=== PATIENT | female | born 1950 | race Two or more races ===

== ENCOUNTER 2023-11-21 20:20 | Inpatient (IN) | payer MEDICARE, OTHER, SELFPAY ==
[2023-11-21 14:13] VITALS: BP 180/100
[2023-11-21 14:29] LABS: % Basophils 0.3 % (0-2); % Eosinophils 0.5 % (0-6); % Immature Granulocytes 0.3 % (0-0.5); % Lymphocytes 19.5 % (20.5-51.1); % Monocytes 5.1 % (1.7-9.3); % Neutrophils 74.3 % (42.2-75.2); Absolute Lymphocytes 1.7 10^3/uL (1.2-3.4); Absolute Monocytes 0.5 10^3/uL (0.1-0.6); Absolute Neutrophils 6.5 10^3/uL (1.4-6.5); Hematocrit 41.9 % (37.0-47.0); Hemoglobin 15.2 g/dL (12.0-16.0); Mean Corp Hgb Conc. 36.3 g/dL (33.0-37.0); Mean Corpuscular Hgb 32.2 pg (27.0-31.0); Mean Corpuscular Volume 88.8 fL (81.0-99.0); Mean Platelet Volume 10.9 fL (7.4-10.4); Nucleated Red Blood Cells % 0 %; Platelet Count 162 10^3/uL (130-400); Red Blood Cell Count 4.72 10^6/uL (4.20-5.40); Red Cell Dist. Width 12.2 % (11.5-14.5); White Blood Cell Count 8.8 10^3/uL (4.8-10.8)
[2023-11-21 15:09] LABS: ALT (SGPT) 331 U/L (0-35); AST (SGOT) 575 U/L (14-36); Albumin 4.7 g/dl (3.5-5.0); Alkaline Phosphatase 155 U/L (38-126); Blood Urea Nitrogen 14 mg/dl (7-17); Calcium 9.7 mg/dl (8.4-10.2); Carbon Dioxide 23 mmol/L (22-30); Chloride 110 mmol/L (98-107); Glucose 133 mg/dl (70-99); Lipase 109 U/L (23-300); Sodium 141 mmol/L (135-145); Total Protein 7.3 g/dl (6.3-8.2); eGFR > 60.00
[2023-11-21] MEDS: ZOFRAN 4 MG IV ×2 (16:06→19:35)
--- NOTE | 2023-11-21 16:06 | ED.GENMED ---
History of Present Illness
General
Chief Complaint: Abdominal Pain
Source: patient and family
Exam Limitations: none
Time Seen by Provider: 11/21/23 15:16
Nursing documentation reviewed up to this point in time: agreed with
History of Present Illness
History of Present Illness:
73-year-old female with past with history of hypertension as well as recent cholecystectomy performed in [place] 6 weeks ago presenting to the emergency department today with concerns of worsening upper abdominal pain episodes of vomiting. Denies
any fevers denies any significant diarrhea. Denies any specific fevers.
Past History
Past History
ED Past Medical History: None
ED Past Surgical History: None
Review of Systems
Review of Systems
Allergies reviewed?: Yes
All Other Systems: ROS reviewed and negative except as documented in HPI and ROS
Phy Exam
Physical Exam
Physical Exam:
GENERAL: Alert , in no apparent distress
EYE: pupils equal and reactive
NECK: Supple, no significant adenopathy.
ENT: o/p clr, mmm.
CARDIAC: Regular rate and rhythm .
LUNGS: Clear breath sounds bilaterally, no acute respiratory distress, no wheezes/rales/rhonchi
ABDOMEN: Somewhat diffuse abdominal pain but mainly to the upper abdomen.
NEUROLOGICAL: Alert and oriented, no focal neuro deficits
SKIN: Warm and dry, skin intact.
MUSCULOSKELETAL: No edema, well perfused.
PSYCH: Normal and appropriate interaction.
Course
Orders/Labs/Results
Orders:
Orders
11/21/23 14:24
Complete Blood Count/With Diff Urgent
Comprehensive Metabolic Panel Urgent
Lipase Urgent
11/21/23 15:46
0.9% Sodium Chloride 1000 ml [Nss] 1,000 ml IV BOLUS
Ketorolac [Toradol] 15 mg IV NOW STA
Ondansetron Injectable [Zofran] 4 mg IV NOW STA
11/21/23 15:47
CT Abd/Pel (IV only)-DH only Urgent
Comment:
Reason For Exam: diffuse abd pain recent [place], 1 month ago in [place]
11/21/23 16:03
Urinalysis Reflex To Culture Urgent
11/21/23 16:09
Lactic Acid Urgent
11/21/23 19:07
HYDROmorphone [Dilaudid] 1 mg IV NOW STA
Ondansetron Injectable [Zofran] 4 mg IV NOW STA
Abnormal Lab Results
11/21/23
14:24
MCH 32.2 H pg
(27.0-31.0)
MPV 10.9 H fL
(7.4-10.4)
Lymphocytes % 19.5 L %
(20.5-51.1)
Chloride 110 H mmol/L
(98-107)
Glucose 133 H mg/dl
(70-99)
Total Bilirubin 2.0 H mg/dl
(0.2-1.3)
AST 575 H* U/L
(14-36)
ALT 331 H U/L
(0-35)
Alkaline Phosphatase 155 H U/L
(38-126)
11/21/23 14:24
11/21/23 14:24
Vital Signs
Initial and Last Documented VS:
Initial Vital Signs
Temp Pulse Resp BP Pulse Ox
98.6 F 103 18 180/100 97
11/21/23 14:13 11/21/23 14:13 11/21/23 14:13 11/21/23 14:13 11/21/23 14:13
Last Documented Vital Signs
Temp Pulse Resp BP Pulse Ox
98.6 F 103 18 125/71 97
11/21/23 14:13 11/21/23 14:13 11/21/23 14:13 11/21/23 18:00 11/21/23 14:13
MDM/Problems Addressed
MDM/Problems Addressed:
71-year-old female presenting to the emergency department today with concerns of abdominal pain developing the nausea and vomiting. This worsened throughout the day today. Had recent cholecystectomy in [place] 6 weeks ago. On arrival patient
mildly tachycardic afebrile blood pressure elevated to 110/100 labs performed showing elevated liver function test alk phos as well as bilirubin level. Initially mildly tachycardic improving after fluids and pain medication CT scan was obtained
that showed acute pancreatitis plan to admit for further monitoring treatment and assessment.
*Critical Care Note
Total Time (30-74mins, 75-104mins- exclusive of procedures): Not Applicable
ED Attending Note
-
Portions of this chart may have been created with voice recognition software.� Occasional wrong word or��sound alike� substitutions may have occurred due to the inherent limitations of voice recognition software.
Discharge Plan
Departure
Patient Disposition: Admit
Date of Disposition: 11/21/23
Time of Disposition: 19:31
Admit to: Med/Surg
Admit to doctor: Ezekiel
Presentation/result/management discussed w/ accepting MD/DO: Hospitalist
Patient with high blood pressure during this ER visit?: No
Condition: Fair
Covid-19: Not Applicable
Discharge Problem:
Acute pancreatitis, Transaminitis, Hyperbilirubinemia
Prescriptions:
No Action
atenolol 25 mg Tablet
12.5 mg PO DAILY
Theragen Tablet
1 tab PO DAILY
aspirin 81 mg Tablet,Delayed Release (Dr/Ec)
81 mg PO DAILY
calcium carbonate [Calcium 500] 500 mg calcium (1,250 mg) Tablet
500 mg PO DAILY
pantoprazole [Protonix] 40 mg Tablet,Delayed Release (Dr/Ec)
40 mg PO DAILY
vitamin B complex [B Complete] Tablet
1 tab PO DAILY
hydrochlorothiazide 25 mg Tablet
25 mg PO Q48H
rosuvastatin [Crestor] 10 mg Tablet
10 mg PO DAILY
cholecalciferol (vitamin D3) [Vitamin D3] 25 mcg (1,000 unit) Tablet
25 mcg PO DAILY
coQ10 (ubiquinol) 200 mg Capsule
200 mg PO DAILY
omega 2-gtc-qmm-fish oil [Fish Oil] 1,000 mg (120 mg-180 mg) Capsule
1 cap PO DAILY
magnesium oxide 400 mg magnesium Tablet
400 mg PO DAILY
Referrals:
Yvonne Salgado DO [Family Provider] -
Interventions
Interventions:
*Risk Screen - Suicide Last Done: 11/21/23 14:13
*General Assessment Last Done: 11/21/23 14:13
*Neglect/Abuse Screening Last Done: 11/21/23 14:13
[facility] Assessment Last Done: 11/21/23 16:15
Discharge Date and Time
Print Language: GEORGIAN
[2023-11-21] MEDS: TORADOL 15 MG IV (16:07)
[2023-11-21] MEDS: NSS 1000 IV (16:08)
[2023-11-21 16:09] VITALS: BP 151/77
[2023-11-21 16:30] LABS: Lactic Acid 1.9 mmol/L (0.7-2.0)
[2023-11-21 17:26] VITALS: BP 127/63
[2023-11-21 18:00] VITALS: BP 125/71
[2023-11-21] MEDS: DILAUDID 1 MG IV (19:35)
--- NOTE | 2023-11-21 19:57 | HPS.HSE ---
Family Physician
-
Family Physician: Yvonne Salgado
Chief Complaint
-
Abdominal pain, nausea and vomiting.
History of Present Illness
This is 71-year-old female who has a past medical history of hypertension, hyperlipidemia, gastritis, diaphragmatic hernia, fatty liver status post cholecystitis recently who presents to the Emergency Department with sudden onset of abdominal pain
that started at around 7 AM today.
Patient reports being in usual state of health until last night and she went to sleep in the usual state of health. She was out walking with mid epigastric abdominal pain that was around a 10 out of 10 at around 7 AM today. She reports some
radiation to the right upper quadrant. Patient reported significant nausea and no vomiting. She is unable to tolerate p.o. She does not have any diarrhea, melena or hematochezia. Denies any bloody emesis. She denies any abdominal bloating.
Denies any fevers or chills. Denies any urinary symptoms.
Patient was in [place] in early October and at that time apparently had acute cholecystitis and is now status post cholecystectomy. She reported that after the procedure she was having symptoms and underwent upper endoscopy which showed hernia. In the
past she has had gastritis. She also reported that about a year ago she had biliary colic with large stone in the gallbladder and was told to have it removed. She reported that in July she had lab work and was told that she had fatty liver at
that time.
Patient reports no new medications. She has no history of diabetes and denies any symptoms consistent with new onset diabetes. Patient denies any alcohol use. She denies any recent trauma or intra-abdominal procedures.
On arrival in the emergency department blood pressure was 115/79 with a pulse of 103 and a temperature of 90.6. Saturation was 97% on room air. There was no leukocytosis hemoglobin was 15 and blood count was 62. Chemistries were mostly normal
with normal electrolytes and glucose, lipase was within normal limits at 109, AST was elevated at 575 ALT 331 and alk phos 123. Bilirubin was slightly elevated at 2.0. CT scan of the abdomen pelvis revealed moderate peripancreatic
edema/inflammatory change consistent with pancreatitis, status postcholecystectomy dilated extrahepatic biliary duct.
Medical History
Past Medical History
Past Medical History: Reports GERD, HTN and Hypercholesterolemia
Past Surgical History: Reports Cholecystectomy
Social History
Tobacco: Non-smoker
Alcohol: Occasional
Drug: None
Personal: Single
Living: With Family
Employment: Retired
Family History
Family History: Not pertinent
Allergies / Home Medications
Allergies reflects when Allergies were last updated in webme.
Home Medications with original date entered in webme
Allergy/Medication List:
Allergies
Allergy/AdvReac Type Severity Reaction Status Date / Time
No Known Allergies Allergy Verified 01/23/21 21:05
Home Medications
aspirin 81 mg tablet,delayed release 81 mg PO DAILY 11/21/23
atenolol 25 mg tablet 12.5 mg PO DAILY 11/21/23
calcium carbonate 500 mg PO DAILY 11/21/23
cholecalciferol (vitamin D3) 25 mcg (1,000 unit) tablet (Vitamin D3) 25 mcg PO DAILY 11/21/23
coQ10 (ubiquinol) 200 mg capsule 200 mg PO DAILY 11/21/23
hydrochlorothiazide 25 mg tablet 25 mg PO Q48H 11/21/23
magnesium oxide 400 mg PO DAILY 11/21/23
omega 7-iqa-ceh-fish oil 1,000 mg (120 mg-180 mg) capsule (Fish Oil) 1 cap PO DAILY 11/21/23
pantoprazole 40 mg tablet,delayed release (Protonix) 40 mg PO DAILY 11/21/23
rosuvastatin 10 mg tablet 10 mg PO DAILY 11/21/23
therapeutic multivitamin 1 tab PO DAILY 11/21/23
vitamin B complex 1 tab PO DAILY 11/21/23
Review of Systems
-
History Source: Patient
Constitutional: Reports No Symptoms
EENT: Reports No Symptoms
Respiratory: Reports No Symptoms
Cardiac: Reports No Symptoms
Abdomen/GI: Reports Abdominal Pain, Nausea and Vomiting
: Reports No Symptoms
Musculoskeletal: Reports No Symptoms
Skin: Reports No Symptoms
Neurological: Reports No Symptoms
Endocrine: Reports No Symptoms
Hematologic/Lymphatic: Reports No Symptoms
Psych: Reports No Symptoms
Physical Exam
Vital Signs
Vital Signs
Temp Pulse Resp BP Pulse Ox
98.6 F 103 18 125/71 97
11/21/23 14:13 11/21/23 14:13 11/21/23 14:13 11/21/23 18:00 11/21/23 14:13
Physical Exam
General: Well Developed and Appears in Distress
HEENT: NormoCephalic, Anicteric, Moist mucous membranes and Atraumatic
Respiratory: Clear
Cardiac: S1/S2 and Tachycardia
Breast: Deferred by me
GI: Soft, Non Distended and Tender
Rectal: Deferred by Provider
Genito-urinary: Deferred by me
Musculoskeletal: No Clubbing, No Cyanosis and No Edema
Skin: Warm
Neuro: AO x 3
Hematologic/Lymphatic: No Lymphadenopathy
Psych: Calm
Laboratory Results
-
11/21/23 14:24
11/21/23 14:24
Laboratory Results
Lactic Acid 1.9 mmol/L (0.7-2.0) 11/21/23 16:09
Total Bilirubin 2.0 mg/dl (0.2-1.3) H 11/21/23 14:24
AST 575 U/L (14-36) H* 11/21/23 14:24
ALT 331 U/L (0-35) H 11/21/23 14:24
Alkaline Phosphatase 155 U/L (38-126) H 11/21/23 14:24
Lipase 109 U/L (23-300) 11/21/23 14:24
Data Reviewed
-
CT Scan: Report Reviewed by me
Lab Data: Labs Reviewed by me
Old Records: Reviewed
Impression/Plan
-
IMPRESSION:
PLAN:
1. Acute Pancreatitis - Patient with acute onset epigastric pain, nausea and vomiting. Non-radiating. Lipase is normal but CT scan shows pancreatic inflammation c/w acute pancreatitis. She denies etoh, new medications or diabetes. H/O gall
stones but is now s/p cholecystectomy. Etiology of pancrease could still be a billiary with a passed stone but less likely. No trauma or procedures.
- admit to Gen med
- NPO for now,
- LR at 150 ml/hr
- antiemetics and pain control
- ppi iv daily
- check triglycerides panel, trend LFTs
- MRCP in am
- GI consultation.
2. Transmaminitis - Reportedly told had fatty liver and CT scan is c/w. Cannot rule out biliary obstruction entirely
- lipid panel as above
- MRCP
3. HTN - Stable
- continue atenolol
DVT PPX with lovenox sq
Full Code
[2023-11-21] MEDS: REGLAN 10 MG IV (20:01)
[2023-11-21] MEDS: PROTONIX IV 40 MG IV (20:45)
[2023-11-21 21:00] LABS: Triglycerides 94 mg/dl (10-149)
[2023-11-21 21:20] VITALS: BP 109/68; BMI 29.1
--- NOTE | 2023-11-21 21:20 | PTCARENOTE ---
Pt arrived from ED via stretcher and ambulated to bed w/ family member at bedside. Pt is AAOx3, VSS, and w/o complaints of pain. Pt is resting comfortably w/ call gabriel within reach.
[2023-11-21] MEDS: LR 1000 IV (21:37)
[2023-11-21 23:44] VITALS: BP 94/62
[2023-11-22] MEDS: ZOFRAN 4 MG IV (01:13)
[2023-11-22 01:37] LABS: Urine Albumin Negative (Neg - Trace); Urine Bilirubin 1+ (Negative); Urine Character Clear (Clear); Urine Color Amber; Urine Glucose Negative (Negative); Urine Ketone Negative (Negative); Urine Leukocyte 1+ (Negative); Urine Nitrite Negative (Negative); Urine Occult Blood 2+ (Negative); Urine Urobilinogen Negative (Neg - 1+)
[2023-11-22 02:00] LABS: Urine Red Blood Cell 21-25 /HPF (0-2)
[2023-11-22 02:01] LABS: Urine Mucus Few
[2023-11-22 02:02] LABS: Urine Bacteria Moderate (Negative); Urine Squamous Cell 16-20 /LPF (Few)
[2023-11-22 03:26] VITALS: BP 98/63
[2023-11-22] MEDS: LR 1000 IV ×3 (05:10→17:33)
[2023-11-22] MEDS: CRESTOR 10 MG PO (07:42)
[2023-11-22] MEDS: TENORMIN 12.5 MG PO (07:42)
[2023-11-22] MEDS: ASPIR LOW (ENTERIC COATED) 81 MG PO (07:43)
[2023-11-22] MEDS: PROTONIX IV 40 MG IV (07:43)
[2023-11-22 07:55] VITALS: BP 134/76
[2023-11-22 08:51] LABS: ALT (SGPT) 743 U/L (0-35); Albumin 3.4 g/dl (3.5-5.0); Alkaline Phosphatase 131 U/L (38-126); Blood Urea Nitrogen 15 mg/dl (7-17); Calcium 8.6 mg/dl (8.4-10.2); Carbon Dioxide 22 mmol/L (22-30); Chloride 114 mmol/L (98-107); Direct Bilirubin 1.5 mg/dl (0.0-0.4); Estimated Creatinine Clearance 51 ml/min; HDL Cholesterol 69 mg/dl; LDL Cholesterol, Calculated 43 mg/dl; Magnesium 1.7 mg/dl (1.6-2.3); Potassium 3.8 mmol/L (3.5-5.1); Sodium 142 mmol/L (135-145); Total Bilirubin 3.6 mg/dl (0.2-1.3); Total Cholesterol 125 mg/dl (50-199); Total Protein 5.6 g/dl (6.3-8.2); Triglyceride 65 mg/dl (10-149); Very Low Density Lipoprotein 13 mg/dl (0-30); eGFR > 60.00
[2023-11-22 08:58] LABS: AST (SGOT) 821 U/L (14-36); Glucose 101 mg/dl (70-99)
[2023-11-22 09:41] LABS: Hematocrit 33.9 % (37.0-47.0); Hemoglobin 11.9 g/dL (12.0-16.0); Mean Corp Hgb Conc. 35.1 g/dL (33.0-37.0); Mean Corpuscular Hgb 32.5 pg (27.0-31.0); Mean Corpuscular Volume 92.6 fL (81.0-99.0); Mean Platelet Volume 11.7 fL (7.4-10.4); Platelet Count 135 10^3/uL (130-400); Red Blood Cell Count 3.66 10^6/uL (4.20-5.40); Red Cell Dist. Width 12.9 % (11.5-14.5); White Blood Cell Count 9.1 10^3/uL (4.8-10.8)
[2023-11-22 10:18] LABS: Lipase > 4000 U/L (23-300)
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
[2023-11-22 15:00] VITALS: BP 117/69
--- NOTE | 2023-11-22 16:19 | CM ---
met with patient and her family at bedside.patient lives with her and grandchild in condo/apt with [address] to enter apt,then first floor living .she ambulates i and is I with her adl.patient's pcp is dr dumont and she uses [facility]
jaspal marino in [facility] .patient has never had a vn or adm to ip rehab.
past medical hx:htn,hld,gastritis,diaphragnmatic hernia,fatty liver sp lucila.
patient is adm with abd pain/pancreatitis.ivf lactated ringers,iv ppi,gi following,npo,for mrcp in am.plan home with no anticipated needs.
[2023-11-22] MEDS: LOVENOX 40 MG SC (17:31)
[2023-11-22 23:03] VITALS: BP 149/76
[2023-11-23] MEDS: LR 1000 IV ×5 (00:11→21:26)
[2023-11-23 07:45] VITALS: BP 118/72
[2023-11-23 08:01] LABS: % Basophils 0.4 % (0-2); % Eosinophils 3.1 % (0-6); % Immature Granulocytes 0.3 % (0-0.5); % Lymphocytes 23.2 % (20.5-51.1); Absolute Eosinophils 0.2 10^3/uL (0-0.7); Absolute Lymphocytes 1.7 10^3/uL (1.2-3.4); Absolute Monocytes 0.6 10^3/uL (0.1-0.6); Absolute Neutrophils 4.8 10^3/uL (1.4-6.5); Hematocrit 33.7 % (37.0-47.0); Hemoglobin 11.9 g/dL (12.0-16.0); Mean Corp Hgb Conc. 35.3 g/dL (33.0-37.0); Mean Corpuscular Hgb 32.1 pg (27.0-31.0); Mean Corpuscular Volume 90.8 fL (81.0-99.0); Mean Platelet Volume 12.1 fL (7.4-10.4); Nucleated Red Blood Cells % 0 %; Platelet Count 120 10^3/uL (130-400); Red Blood Cell Count 3.71 10^6/uL (4.20-5.40); Red Cell Dist. Width 12.8 % (11.5-14.5); White Blood Cell Count 7.4 10^3/uL (4.8-10.8)
[2023-11-23 08:44] LABS: ALT (SGPT) 582 U/L (0-35); AST (SGOT) 384 U/L (14-36); Albumin 3.8 g/dl (3.5-5.0); Alkaline Phosphatase 196 U/L (38-126); Blood Urea Nitrogen 10 mg/dl (7-17); Calcium 8.8 mg/dl (8.4-10.2); Carbon Dioxide 24 mmol/L (22-30); Chloride 108 mmol/L (98-107); Estimated Creatinine Clearance 57 ml/min; Glucose 84 mg/dl (70-99); Lipase 308 U/L (23-300); Magnesium 1.7 mg/dl (1.6-2.3); Potassium 3.2 mmol/L (3.5-5.1); Sodium 140 mmol/L (135-145); Total Bilirubin 3.5 mg/dl (0.2-1.3); Total Protein 6.1 g/dl (6.3-8.2); eGFR > 60.00
[2023-11-23] MEDS: TENORMIN 12.5 MG PO (09:10)
[2023-11-23] MEDS: PROTONIX IV 40 MG IV (09:10)
[2023-11-23] MEDS: ASPIR LOW (ENTERIC COATED) 81 MG PO (09:10)
[2023-11-23] MEDS: NSS (PRESERVATIVE FREE) 10 ML IV (10:16)
--- NOTE | 2023-11-23 10:33 | W.PN.GI.CBS2 ---
Addendum entered and electronically signed by Brandan Mckeon MD 11/23/23 14:40:
I saw and examined the patient.
The DIE SETTER or PA's note was reviewed and I agree with the note.
Comment: Feeling better. Tolerated full liquids for lunch
ABD soft NTND
REC:
MRCP negative for CBD stone
Possibly passed stone, LFTs coming down
Recheck am LFTs
Advance to low fat diet tomorrow and if tolerated, can d/c
Original Note:
Today's Communication / Plan
-
full liquid diet
CBC, LFT in am
Incentive spirometer
Continue IVF
Assessment / Plan
-
Summary: 73yo female presents with acute onset abdominal pain x 1 day. She had recent cholecystectomy for gallstones in [place] while on vacation in October. Post op complicated by incarcerated hiatal hernia requiring return to OR, chest tubes,
repair. AST 575-->821, ALT 331-->743, TB 2.0-->3.6, Lipase 109-->4000. CT- acute pancreatitis with moderate peripancreatic edema/inflammatory change. CBD 12mm. Cholecystectomy
Impression:
Gallstone pancreatitis
s/p recent cholecystectomy for gallstones in [place] October 2023
post-op repair of incarcerated hiatal hernia
Recommendations:
-Tolerated clears, advance to full liquid diet
Currently feeling better, perhaps passed stone
Trend LFTs, CBC
Continue LR- increase to 200cc/hr
Add incentive spirometer
Subjective
Subjective
Date of Service: November 23, 2023
Patient with decreased pain. Tolerated clear liquid diet. Hgb stable. LFTs trending down. Lipase trending down. MRI/MRCP with mild peripancreatic edema, mild intra/extrahepatic biliary ductal dilatation s/p CCY. No bilirubinuria, no BM since
Thursday. Not uncomfortable.
Objective
Data Reviewed
Laboratory Data:
Laboratory Results
11/23/23 06:30
11/23/23 06:30
Laboratory Results
Magnesium 1.7 mg/dl (1.6-2.3) 11/23/23 06:30
Total Bilirubin 3.5 mg/dl (0.2-1.3) H 11/23/23 06:30
AST 384 U/L (14-36) H 11/23/23 06:30
ALT 582 U/L (0-35) H* 11/23/23 06:30
Alkaline Phosphatase 196 U/L (38-126) H 11/23/23 06:30
Lipase 308 U/L (23-300) H 11/23/23 06:30
Vital Signs and I&O:
Vital Signs
Temp Pulse Resp BP Pulse Ox
98.7 F 72 16 118/72 95
11/23/23 07:45 11/23/23 07:45 11/23/23 07:45 11/23/23 07:45 11/23/23 07:45
I&O
11/22/23 11/23/23 11/24/23
06:59 06:59 06:59
Intake Total 1240 / 1240
Balance 1240 / 1240
Physical Exam
Physical Exam
HEENT: Anicteric
Cardiology: Normal Sinus Rhythm
Pulmonary: Clear
GI: Soft, Non Distended, Tender (mild), Normal Bowel Sounds and Other (healed incisions, mild area ecchymosis RLQ)
Extremities: No Edema
Neuro: Non Focal
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
[2023-11-23 15:30] VITALS: BP 135/73
[2023-11-23] MEDS: LOVENOX 40 MG SC (17:43)
[2023-11-23 23:38] VITALS: BP 159/81
[2023-11-24] MEDS: LR 1000 IV ×2 (03:03→09:10)
[2023-11-24 07:08] VITALS: BP 182/91
[2023-11-24 08:45] LABS: ALT (SGPT) 386 U/L (0-35); AST (SGOT) 164 U/L (14-36); Albumin 3.7 g/dl (3.5-5.0); Alkaline Phosphatase 212 U/L (38-126); Direct Bilirubin 0.2 mg/dl (0.0-0.4); Lipase 115 U/L (23-300); Total Bilirubin 1.5 mg/dl (0.2-1.3)
[2023-11-24 08:46] LABS: Hematocrit 34.7 % (37.0-47.0); Hemoglobin 12.4 g/dL (12.0-16.0); Mean Corp Hgb Conc. 35.7 g/dL (33.0-37.0); Mean Corpuscular Hgb 32.5 pg (27.0-31.0); Mean Corpuscular Volume 91.1 fL (81.0-99.0); Mean Platelet Volume 11.9 fL (7.4-10.4); Platelet Count 128 10^3/uL (130-400); Red Blood Cell Count 3.81 10^6/uL (4.20-5.40); Red Cell Dist. Width 12.5 % (11.5-14.5); White Blood Cell Count 5.3 10^3/uL (4.8-10.8)
[2023-11-24] MEDS: LR IV ×2 (09:10→15:48)
[2023-11-24] MEDS: ASPIR LOW (ENTERIC COATED) 81 MG PO (09:11)
[2023-11-24] MEDS: TENORMIN 12.5 MG PO (09:11)
[2023-11-24] MEDS: PROTONIX IV 40 MG IV (09:12)
[2023-11-24] MEDS: NSS (PRESERVATIVE FREE) 10 ML IV (09:12)
--- NOTE | 2023-11-24 14:02 | W.PN.GI.CBS2 ---
Addendum entered and electronically signed by Subhash Mccullough MD 11/24/23 18:28:
I saw and examined the patient.
The CROWN CERAMIST's note was reviewed and I agree with the note.
Comment:
Acute pancreatitis -feeling better. Denies any abdominal pain/nausea/vomiting. Tolerating diet. MRI abdomen no retained CBD stone noted. Liver test trending down
plan
Will recommend repeat LFT with PCP in 1 to 2 weeks. If persistently elevated will recommend outpatient EUS
Follow-up with GI as outpatient. Will sign off
Original Note:
Today's Communication / Plan
-
Continue low-fat diet
Follow-up with LFTs in 1 to 2 weeks with PCP
Patient given our card for GI follow-up
Assessment / Plan
-
Summary: 73yo female presents with acute onset abdominal pain x 1 day. She had recent cholecystectomy for gallstones in [place] while on vacation in October. Post op complicated by incarcerated hiatal hernia requiring return to OR, chest tubes,
repair. AST 575-->821, ALT 331-->743, TB 2.0-->3.6, Lipase 109-->4000. CT- acute pancreatitis with moderate peripancreatic edema/inflammatory change. CBD 12mm. Cholecystectomy
Impression:
Gallstone pancreatitis
s/p recent cholecystectomy for gallstones in [place] October 2023
post-op repair of incarcerated hiatal hernia
Recommendations:
-Tolerating low-fat diet.
-Currently feeling better, perhaps passed stone
-Recommend repeat LFTs with PCP in 1 to 2 weeks
Subjective
Subjective
Date of Service: November 24, 2023
Patient without any pain. Tolerating a low-fat diet. LFTs trending down.
Objective
Data Reviewed
Laboratory Data:
Laboratory Results
11/24/23 07:15
11/23/23 06:30
Laboratory Results
Magnesium 1.7 mg/dl (1.6-2.3) 11/23/23 06:30
Total Bilirubin 1.5 mg/dl (0.2-1.3) H D 11/24/23 07:15
AST 164 U/L (14-36) H 11/24/23 07:15
ALT 386 U/L (0-35) H 11/24/23 07:15
Alkaline Phosphatase 212 U/L (38-126) H 11/24/23 07:15
Lipase 115 U/L (23-300) 11/24/23 07:15
Vital Signs and I&O:
Vital Signs
Temp Pulse Resp BP Pulse Ox
98.1 F 53 20 182/91 95
11/24/23 07:08 11/24/23 07:08 11/24/23 07:08 11/24/23 07:08 11/24/23 08:20
I&O
11/23/23 11/24/23 11/25/23
06:59 06:59 06:59
Intake Total 1240 / 1240 3660 / 3660
Balance 1240 / 1240 3660 / 3660
Physical Exam
Physical Exam
HEENT: Anicteric
Cardiology: Normal Sinus Rhythm
Pulmonary: Clear
GI: Soft, Non Distended, Non Tender and Normal Bowel Sounds
Extremities: No Edema
Neuro: Non Focal
--- NOTE | 2023-11-24 14:45 | CM ---
ISAMAR met with Helena today to discuss discharge. She is looking forward to returning home today. Family is supportive and Helena denies needing anything at home for discharge.
Plan: Discharge to home with family. No needs.
PCP: Yvonne Salgado
Pharmacy: [facility] in [place]
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
[2023-11-24 15:59] VITALS: BP 122/74
--- NOTE | 2023-11-24 16:00 | W.DS.TRANS ---
DC Summary - Manufacturing Industrial Engineer
-
Discharge Instructions:
Discharge Diagnosis/Procedures Acute Gallstone Pancreatitis
Diet Low Fat
Activity No restrictions
Driving Restrictions No driving for 24 hours
Bathing Restrictions None
Blood Work CBC, CMP in 1-2 weeks
Instructions:
Stand-Alone Forms:
Changes to Home Medications: Yes
Discharge Medications:
DC Medications w/original date entered in [facility]
aspirin 81 mg tablet,delayed release 81 mg PO DAILY 11/21/23
atenolol 25 mg tablet 12.5 mg PO DAILY 11/21/23
calcium carbonate 500 mg PO DAILY 11/21/23
cholecalciferol (vitamin D3) 25 mcg (1,000 unit) tablet (Vitamin D3) 25 mcg PO DAILY 11/21/23
coQ10 (ubiquinol) 200 mg capsule 200 mg PO DAILY 11/21/23
magnesium oxide 400 mg PO DAILY 11/21/23
omega 8-pfh-gtq-fish oil 1,000 mg (120 mg-180 mg) capsule (Fish Oil) 1 cap PO DAILY 11/21/23
pantoprazole 40 mg tablet,delayed release (Protonix) 40 mg PO DAILY 11/21/23
therapeutic multivitamin 1 tab PO DAILY 11/21/23
vitamin B complex 1 tab PO DAILY 11/21/23
Home Medication Changes
stop HCTZ and Crestor until lab checked
Pending Results: No
[2023-11-24] MEDS: KCL 20 MEQ PO (16:14)
--- NOTE | 2023-11-25 12:52 | PN.CDI ---
CDI
- -
CDI:
Physician Documentation Request
Admit Date: 11/21/23 20:20
Dear Doctor Anna,
Patient admitted for acute pancreatitis.
11/22 Potassium level: 3.2
11/23 Potassium chloride 20 meq PO administered
Based on the above, could you clarify in the progress notes, the appropriate diagnosis, if significant, that supports the above abnormalities and additional evaluation, monitoring and/or treatment rendered:
Hypokalemia
Abnormal lab insignificant
Other
Use of terms such as suspected, likely, concern for, or probable (associated with a specific diagnosis that is being evaluated, monitored, or treated as if it exists) are acceptable and can be coded in the inpatient setting, when documented at the
time of discharge.
Thank you,
Lynn Gaitan RN, BSN
CDI Specialist
Available via [place] text
Please use your independent medical judgment in providing your response.
--- NOTE | 2023-11-26 12:18 | PN.CDI ---
CDI
- -
CDI:
Physician Documentation Request
Admit Date: 11/21/23 20:20
Dear Doctor Anna
Please review the following and provide your response in the progress notes.
Clinical Indicators:
Patient admitted with Acute Pancreatitis
11/21 PN -lipase from 108 to>4000-obstructed stone? cannot rule out biliary obstruction entirely
11/23 PN -biliary ductal dilation not unexpected for postcholecystectomy status ?passed obstructed stone cannot ruled out biliary obstruction entirely
DS: .. resolving but uncomplicated acute interstitial edema to his pancreatitis with no evidence of gallstone, though having mild bile duct dilatation. The assumption is that this was a gallstone pancreatitis with a passed stone with rapid
resolution of all symptoms.
Please clarify the following:
____ Obstruction of bile duct was present on admission and is now resolved.
____ Obstruction of bile duct was present on admission and is still being monitored, evaluated or treated
____ Obstruction of bile duct was ruled out
____ Obstruction of bile duct is still a likely, suspected, probable diagnosis
____ Other
____ - Unable to determine
Use of terms such as suspected, likely, concern for, or probable (associated with a specific diagnosis that is being evaluated, monitored, or treated as if it exists) are acceptable and can be coded in the inpatient setting, when documented at the
time of discharge.
Thank you,
Alondra Ireland
Development Technician Inpatient
Please use your independent medical judgment in providing your response.
== END 2023-11-24 16:40 | disposition home or self-care (01) | DRG 438 ==
LOC: 4 EAST ACU 20:20
PROVIDERS: Emergency Medicine; Hospitalist; Nurse Practitioner; Physician Assistant; ADMITTING PHYSICIAN Internal Medicine; ATTENDING PHYSICIAN Internal Medicine; CONSULT PHYSICIAN Specialist; EMERGENCY PHYSICIAN Emergency Medicine; FAMILY PHYSICIAN Internal Medicine
DX: K85.10 Biliary acute pancreatitis without necrosis or infection (principal); K83.1 Obstruction of bile duct; I10 Essential (primary) hypertension; E78.00 Pure hypercholesterolemia, unspecified; K21.9 Gastro-esophageal reflux disease without esophagitis; K76.0 Fatty (change of) liver, not elsewhere classified; E87.6 Hypokalemia; Z90.49 Acquired absence of other specified parts of digestive tract; Z87.891 Personal history of nicotine dependence; Z87.19 Personal history of other diseases of the digestive system; Z79.82 Long term (current) use of aspirin
CPT/HCPCS: 74177; 74183; 80053; 80061; 80076; 81003; 81015; 82248; 83605; 83690; 83735; 84478; 85025; 85027; 87086; 96361; 96374; 96375; 96376; 99285; A9575; Q9967

== ENCOUNTER → 2024-05-13 10:10 | Outpatient (REF) | payer MEDICARE, OTHER, SELFPAY | LOC: RAD 10:10 | PROVIDERS: ATTENDING PHYSICIAN Specialist; FAMILY PHYSICIAN Internal Medicine | DX: R10.13 Epigastric pain (principal) | CPT/HCPCS: 74246 ==

== ENCOUNTER 2024-05-17 13:35 | Emergency (ER) | payer MEDICARE, OTHER, SELFPAY ==
[2024-05-17 13:37] VITALS: BP 141/109
[2024-05-17 14:17] LABS: % Basophils 0.4 % (0-2); % Eosinophils 1.9 % (0-6); % Immature Granulocytes 0.3 % (0-0.5); % Lymphocytes 22.3 % (20.5-51.1); % Monocytes 10.4 % (1.7-9.3); % Neutrophils 64.7 % (42.2-75.2); Absolute Eosinophils 0.1 10^3/uL (0-0.7); Absolute Lymphocytes 1.6 10^3/uL (1.2-3.4); Absolute Monocytes 0.7 10^3/uL (0.1-0.6); Absolute Neutrophils 4.5 10^3/uL (1.4-6.5); Hematocrit 42.9 % (37.0-47.0); Mean Corpuscular Hgb 32.3 pg (27.0-31.0); Mean Corpuscular Volume 92.3 fL (81.0-99.0); Nucleated Red Blood Cells % 0 %; Platelet Count 177 10^3/uL (130-400); Red Blood Cell Count 4.65 10^6/uL (4.20-5.40); Red Cell Dist. Width 12.7 % (11.5-14.5)
[2024-05-17 14:27] LABS: ALT (SGPT) 31 U/L (0-35); AST (SGOT) 35 U/L (14-36); Albumin 4.7 g/dl (3.5-5.0); Alkaline Phosphatase 67 U/L (38-126); Blood Urea Nitrogen 24 mg/dl (7-17); Calcium 9.7 mg/dl (8.4-10.2); Carbon Dioxide 24 mmol/L (22-30); Chloride 105 mmol/L (98-107); Glucose 115 mg/dl (70-99); Potassium 4.1 mmol/L (3.5-5.1); Sodium 138 mmol/L (135-145); Total Bilirubin 1.1 mg/dl (0.2-1.3); Total Protein 7.2 g/dl (6.3-8.2); eGFR > 60.00
[2024-05-17 14:36] LABS: Troponin I < 0.012 ng/ml
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
[2024-05-17 16:35] VITALS: BP 119/72
[2024-05-17 18:00] VITALS: BP 124/68
[2024-05-17] MEDS: TORADOL 30 MG IM (18:17)
== END 2024-05-17 18:51 | disposition home or self-care (01) ==
LOC: EMR 13:35
PROVIDERS: Emergency Medicine; EMERGENCY PHYSICIAN Emergency Medicine; FAMILY PHYSICIAN Internal Medicine
DX: M54.12 Radiculopathy, cervical region (principal); M25.512 Pain in left shoulder; R53.1 Weakness; R20.2 Paresthesia of skin; R22.32 Localized swelling, mass and lump, left upper limb; I45.10 Unspecified right bundle-branch block; I10 Essential (primary) hypertension; Z79.82 Long term (current) use of aspirin
CPT/HCPCS: 73030; 80053; 84484; 85025; 93005; 93971; 96372; 99284

== ENCOUNTER → 2024-06-15 15:06 | Outpatient (REF) | payer MEDICARE, OTHER, SELFPAY | LOC: PAVMRI 15:06 | PROVIDERS: ATTENDING PHYSICIAN Physician Assistant Medical; FAMILY PHYSICIAN Internal Medicine | DX: M54.12 Radiculopathy, cervical region (principal) | CPT/HCPCS: 72141 ==